=== PATIENT | male | born 1965 | race Caucasian/White ===

== ENCOUNTER 2019-10-26 12:56 | Outpatient (CLI) | payer OTHER ==
--- NOTE | 2019-10-26 14:23 | XRAY Report ---
PROCEDURE: Abdomen 1 View X-Ray INDICATIONS: URETERAL CALCULUS TECHNIQUE: 1 view of the abdomen were acquired. COMPARISON: None. FINDINGS: Surgical changes and devices: None. Bowel: No pneumoperitoneum. The bowel gas pattern is normal. A 1.5 x 0.7 pelvic calcification is seen, although the exact location is unclear. This could be furth er defined with CT KUB as clinically necessary to exclude bladder calculus. No definite ureteral calc ulus. Bones: No suspicious bony abnormalities. IMPRESSION: Nonspecific pelvic calcification as discussed above. Reviewed by: Duong Mejia MD on 10/26/2019 2:22 PM PDT Approved by: Duong Mejia MD on 10/26/2019 2:22 PM PDT Station ID: [id number]
== END 2019-10-26 12:57 | disposition home or self-care (01) ==
LOC: DI 12:56
PROVIDERS: ATTEND Specialist
DX: N20.1 Calculus of ureter (principal)
CPT/HCPCS: 74018